=== PATIENT | male | born 1950 | race Two or more races ===

== ENCOUNTER 2025-01-18 07:03 | Outpatient (CLI) | payer BC, MEDICARE ==
[~2025-01-18] VITALS: Ht 180.3 cm; Wt 74.8 kg
[2025-01-18] MEDS: REGADENOSON 0.4 MG/5 ML SYRG IV ONE ×2 (10:24)
--- NOTE | 2025-01-21 09:56 | DVHSR ---
APPROVED REPORT Exam: Nuclear Stress Test BMI: 0 Stress Test Details Stress Test: Pharmacologic stress testing performed using 0.4 mg of regadenoson per 5 mL given IV ov er 10 seconds. HR Resting HR: 62 bpmMax Heart Rate (APMHR): 148.243243 bpm Max HR Achieved: 98 bpmTarget HR (85% APMHR): 125.574689 bpm % of APMHR: 66.22 Recovery HR: 70 bpm BP Resting BP: 161/89 mmHg Recovery BP: 143/90 mmHg ECG Resting ECG: Sinus Rhythm Clinical Reason for Termination: Completed protocol Nurse Comments Recieved pt. from [facility]. A/Ox4 on RA. Connected to court monitor, VS stable. PIV flushes well. Re viewed POC. Pt. verbalized understanding of procedure including risks and side effects, agrees for st ress testing. Lexiscan stress test performed per protocol. [facility] tech administered Cardiolite. Pt. tolerated well . Pt. stable, no change on exam. VS returned to baseline. Transferred to [facility] via wheelchair w/ te ch. 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 Time of rest injection: 0800 Time of rest imagin Administration Route: IV Administration Site: Left Hand Pharmacologic Stress Pharmacologic stress test was performed by injecting Regadenoson 0.4 mg IV push followed by the intra venous injection of 30.5 mCi of Tc-99m Sestamibi. Time of stress injection: 0910 Time of stress imagin Administration Route: IV Administration Site: Left Hand Gated Stress SPECT was performed 50 minutes after stress injection. The images were gated to evaluate regional wall motion and calculate left ventricular ejection fracti on. 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
== END 2025-01-18 17:00 | disposition home or self-care (01) ==
LOC: XYW 07:03
PROVIDERS: ATTEND Specialist
DX: I25.9 Chronic ischemic heart disease, unspecified (principal); I25.10 Atherosclerotic heart disease of native coronary artery without angina pectoris; I50.9 Heart failure, unspecified
CPT/HCPCS: 78452; 93017; A9500; J2785